=== PATIENT | female | born 1995 | race Caucasian/White ===

== ENCOUNTER 2020-09-07 14:05 | Inpatient (IN) | payer OTHER ==
[2020-09-07 15:48] LABS: BASO % 0.2 % (0-2.0); EOS % 0.4 % (0-4.5); HEMATOCRIT 36.2 % (32.4-45.2); LYMPH % 7.5 % (8-40); MCH 26.4 pg (25.7-33.7); MEAN CELL VOLUME 79.9 fl (80-96); MEAN PLT VOLUME 7.6 fl (7.5-11.1); MONO % 5.3 % (3.8-10.2); NEUT % 86.6 % (42.8-82.8); PLATELET COUNT 376 K/MM3 (134-434); RBC 4.53 M/mm3 (3.60-5.2); WHITE BLOOD COUNT 15.3 K/mm3 (4.0-10.0)
[2020-09-07 15:49] VITALS: BMI 33.2
[2020-09-07 16:07] LABS: POTASSIUM 3.9 mmol/L (3.5-5.1)
[2020-09-07 16:09] LABS: BLOOD UREA NITROGEN 8.4 mg/dL (7-18); CALCIUM 9.3 mg/dL (8.5-10.1)
[2020-09-07] MEDS: ELECTROLYTE-148 SOLN 1,000 ML IV SCH (16:10)
[2020-09-07 16:14] LABS: CREATININE 0.5 mg/dL (0.55-1.3); INR 0.96 (0.83-1.09); PROTHROMBIN TIME (PATIENT) 11.6 SEC (9.7-13.0)
[2020-09-07 16:17] LABS: ACTIVATED PTT 28.9 SECONDS (25.2-36.5)
[2020-09-07] MEDS ORDERED: LIDOCAINE HCL 1% PRESERVATIVE FREE - 30ML VIAL ONE (16:25)
[2020-09-07] MEDS ORDERED: OXYTOCIN 20 UNITS in 0.9% NS 20 UNIT/1,000 ML INFUS.BAG IV ONE ×2 (16:25→18:35)
[2020-09-07] MEDS: OXYTOCIN 20 UNITS in 0.9% NS 20 UNIT/1,000 ML INFUS.BAG IV SCH (17:15)
[2020-09-07] MEDS ORDERED: IBUPROFEN 600 MG TABLET (FP) PO PRN (17:56)
[2020-09-07] MEDS ORDERED: ACETAMINOPHEN 325 MG TABLET (FP) PO PRN (17:56)
[2020-09-07] MEDS ORDERED: WITCH HAZEL 50% (TUCKS) 40 PAD/JAR PAD TP PRN (17:56)
[2020-09-07] MEDS ORDERED: BENZOCAINE 28 GM HEMORRHOIDAL OINTMENT TP PRN (17:56)
[2020-09-07] MEDS ORDERED: BENZOCAINE 20% 57 GM BOTTLE TP PRN (17:56)
[2020-09-07] MEDS ORDERED: METHYLERGONOVINE MALEATE 0.2 MG/1 ML AMP IM PRN (17:56)
[2020-09-07 19:29] LABS: CORD BASE EXCESS -5.1 mmol/L (0-2); CORD BASE EXCESS -5.9 mmol/L (0-2); CORD HCO3 20.4 mmHg (20-29); CORD HCO3 21.9 mmHg (20-29); CORD PCO2 39.5 mmHg (30-78); CORD PCO2 52.4 mmHg (30-78); CORD pH 7.239 (7.14-7.44); CORD pH 7.33 (7.14-7.44)
[2020-09-08 08:19] LABS: BASO % 0.3 % (0-2.0); EOS % 0.8 % (0-4.5); HEMATOCRIT 29.9 % (32.4-45.2); HEMOGLOBIN 9.9 GM/dL (10.7-15.3); MCH 26.6 pg (25.7-33.7); MCHC 32.9 g/dl (32.0-36.0); MEAN CELL VOLUME 80.8 fl (80-96); MEAN PLT VOLUME 7.6 fl (7.5-11.1); NEUT % 81.9 % (42.8-82.8); PLATELET COUNT 315 K/MM3 (134-434); RBC 3.71 M/mm3 (3.60-5.2); RDW 16.3 % (11.6-15.6); WHITE BLOOD COUNT 16.4 K/mm3 (4.0-10.0)
[2020-09-08] MEDS: PRENATAL VITAMINS W/ FOLIC ACID TABLET (FP) PO SCH (09:37)
[2020-09-08] MEDS: DOCUSATE SODIUM 100 MG CAPSULE (FP) PO SCH (09:37)
[2020-09-08] MEDS ORDERED: SENNOSIDES/DOCUSATE COMBO (SENNA PLUS) TABLET (UD) PO PRN (22:00)
[2020-09-08] MEDS: ELECTROLYTE-148 SOLN 1,000 ML IV SCH (23:38)
[2020-09-09] MEDS: OXYTOCIN 20 UNITS in 0.9% NS 20 UNIT/1,000 ML INFUS.BAG IV SCH (00:28)
[2020-09-09] MEDS: DOCUSATE SODIUM 100 MG CAPSULE (FP) PO SCH (09:24)
[2020-09-09] MEDS: PRENATAL VITAMINS W/ FOLIC ACID TABLET (FP) PO SCH (09:24)
[2020-09-09 15:04] VITALS: BP 124/81; PULSE 92; TEMP 99
== END 2020-09-09 15:05 | disposition home or self-care (01) | DRG 560 ==
LOC: JDEL 14:05 → JLDR 14:50 → J3W 20:20
PROVIDERS: ADMIT Obstetrics & Gynecology; ATTEND Obstetrics & Gynecology
PROC: 10E0XZZ Delivery of Products of Conception, External Approach (ICD-10-PCS; principal; 2020-09-07)
PROC: 0HQ9XZZ Repair Perineum Skin, External Approach (ICD-10-PCS; 2020-09-07)
PROC: 0W8NXZZ Division of Female Perineum, External Approach (ICD-10-PCS; 2020-09-07)
DX: O70.0 First degree perineal laceration during delivery (principal); Z3A.40 40 weeks gestation of pregnancy; Z37.0 Single live birth
CPT/HCPCS: 36415; 36600; 59409; 80048; 82803; 85025; 85610; 85730; 86780; 86850; 86900; 86901; C9803; U0003

== ENCOUNTER 2022-05-19 13:40 | Emergency (ER) | payer OTHER ==
[2022-05-19 14:16] VITALS: BP 121/83; PULSE 92; RESP 18; TEMP 98.5; BMI 29.2
[2022-05-19] MEDS ORDERED: IBUPROFEN 600 MG TABLET (FP) PO ONE ×2 (15:32→15:35)
== END 2022-05-19 15:53 | disposition home or self-care (01) ==
LOC: JERFT 13:40 → JER 13:40 → JERFT 15:53
DX: R07.9 Chest pain, unspecified (principal)
CPT/HCPCS: 71046-TC-FY; 93005; 93010; 99284-25